=== PATIENT | female | born 1995 | race Caucasian/White ===

== ENCOUNTER 2018-08-24 13:19 | Emergency (ER) | payer BC ==
[~2018-08-24] VITALS: Ht 162.6 cm; Wt 78.0 kg
[2018-08-24 13:23] VITALS: BP 140/76; PULSE 99; RESP 20; Ht 162.6 cm; Wt 78.0 kg
[2018-08-24] MEDS ORDERED: MUPI22OI2 TOP (15:00)
[2018-08-24] MEDS ORDERED: DOXY100T20 PO (15:00)
--- NOTE | 2018-08-24 15:02 | ERD ---
ER Documentation Chief Complaint Chief Complaint Left hand index finger cuticle irritation x1week s/p hang nail hx of DM HPI 22-year-old female presents with right fourth digits pain and redness to the nail after she clipped a hangnail a few days ago. She has no restricted range of motion weakness or fevers or bleeding or discharge. ROS All systems reviewed and are negative except as per history of present illness. Medications Home Meds Active Scripts Mupirocin* (Bactroban*) 2% -22 Gram Oint...g., 1 APPLIC TOP BID for 7 Days, EA Prov:HOUSTON BURRIS MD 08/24/18 Doxycycline Hyclate* (Doxycycline Hyclate*) 100 Mg Tablet.dr, 100 MG PO BID for 7 Days, TAB Prov:HOUSTON BURRIS MD 08/24/18 Allergies Allergies: Coded Allergies: vancomycin (Verified Allergy, Intermediate, 08/24/18) PMhx/Soc Medical and Surgical Hx: pt denies Medical Hx, pt denies Surgical Hx Hx Alcohol Use: No Hx Substance Use: No Hx Tobacco Use: No Smoking Status: Never smoker FmHx Family History: No diabetes, No coronary disease, No other Physical Exam Vitals Vital Signs Date Temp Pulse Resp B/P (MAP) Pulse Ox O2 O2 Flow FiO2 Time Delivery Rate 08/24/18 98.4 99 20 140/76 97 13:23 (97) Physical Exam Const: No acute distress Head: Atraumatic Eyes: Normal Conjunctiva ENT: Normal External Ears, Nose and Mouth. Neck: Full range of motion. No meningismus. Resp: Clear to auscultation bilaterally Cardio: Regular rate and rhythm, no murmurs Abd: Soft, non tender, non distended. Normal bowel sounds Skin: No petechiae or rashes Back: No midline or flank tenderness Ext: No cyanosis, or edema. Right ring finger laterally shows some redness a nd slight swelling at the paronychia area. No fluctuance or discharge. No proximal tendon tenderness, restricted range of motion weakness. Neur: Awake and alert Psych: Normal Mood and Affect Procedures/MDM Patient presents with signs and symptoms of a right fourth digit paronychia without current signs of abscess, tenosynovitis, significant cellulitis, juany tional complications. She will be treated with doxycycline, topical antibiotic, recommendations for warm soaks and a 2-4-day recheck for evaluation for incision and drainage. The patient was stable with no new complaints during the ER course. Clinically, there is no current evidence to suggest meningitis, sepsis, acute abdomen, pneumonia, stroke, acute coronary syndrome, pulmonary embolism, aortic dissection or any other emergent condition appearing to require further evaluation or hospitalization. Patient counseled regarding my diagnostic impression and care plan. Prior to discharge all questions answered. Pt agrees with treatment plan and understands strict return precautions. Pt is instructed to follow up with primary care provider within 24-48 hours. Precautionary instructions provided including instructions to return to the ER if not improving or for any worsening or changing symptoms or concerns. Disclaimer: Inadvertent spelling and grammatical errors are likely due to EHR/dictation software use and do not reflect on the overall quality of patient care. Also, please note that the electronic time recorded on this note does not necessarily reflect the actual time of the patient encounter. Departure Diagnosis: Primary Impression: Paronychia of finger Laterality: right Qualified Codes: L03.011 - Cellulitis of right finger Condition: Stable Patient Instructions: Paronychia [facility] Usted se benavidez hecho un examen mdico de control que le indica que no est en isabella condicin que requiera tratamiento urgente en el Departamento de Emergencia. Un estudio ms profundo y el tratamiento de fontanez condicin pueden esperar sin ningn riesgo hasta que usted sea atendida/o en el consultorio de fontanez mdico o isabella clnica. Es responsabilidad suya arreglar isabella jeremiah para el seguimiento del qian. MANEJO DE CONDICIONES NO URGENTES EN EL FUTURO 1) Si usted tiene un mdico de atencin primaria: Usted debera llamar a fontanez mdico de atencin primaria antes de venir al d epartamento de emergencia. Despus de las horas de consultorio, fontanez doctor o fontanez asociado/a est disponible por telfono. El mdico o enfermero de francisco en el servicio telefnico puede asesorarle por layton medio para atender el problema, o qian contrario se puede programar isabella jeremiah. 2) Si usted no tiene un mdico de atencin primaria: Llame al mdico o clnica de referencia que aparece abajo vanessa las horas de consultorio para hacer isabella jeremiah para que le vean. CLINICAS: [facility] [phone] [facility] [phone] [facility] [phone] [facility] [phone] [facility] [place] [phone] [facility] [phone] [address] Additional Instructions: At home. Recheck in 2-4 days for evaluation for incision and drainage. Recheck sooner for worsening symptoms. HOUSTON BURRIS MD Aug 24, 2018 15:02
== END 2018-08-24 15:49 | disposition home or self-care (01) ==
LOC: FTE 13:19
DX: L03.011 Cellulitis of right finger (principal)
CPT/HCPCS: 99283